=== PATIENT | female | born 1965 | race Two or more races ===

== ENCOUNTER → 2024-06-27 06:19 | Outpatient (REF) | payer MEDICARE, MEDICAID, SELFPAY | LOC: MRI 3T 06:19 | PROVIDERS: ATTENDING PHYSICIAN Physical Medicine & Rehabilitation Sports Medicine; FAMILY PHYSICIAN Family Medicine | DX: M25.562 Pain in left knee (principal); M54.32 Sciatica, left side | CPT/HCPCS: 73721 ==

== ENCOUNTER → 2024-07-23 12:16 | Outpatient (REF) | payer MEDICARE, MEDICAID, SELFPAY ==
[2024-07-23 12:50] VITALS: BP 126/86; BP_SYST 88
[2024-07-23 14:15] VITALS: BP 118/88; BP_SYST 78
== END ==
LOC: RADI 12:16
PROVIDERS: ATTENDING PHYSICIAN Physical Medicine & Rehabilitation Sports Medicine
DX: M71.22 Synovial cyst of popliteal space [Baker], left knee (principal)
CPT/HCPCS: 20612

== ENCOUNTER 2024-09-09 06:16 | Day surgery (SDC) | payer MEDICARE, SELFPAY ==
[2024-09-09] VITALS (15 sets, daily range): BP systolic 92–137; BP diastolic 64–94; BMI 28.7
[2024-09-09] MEDS: TYLENOL 1000 MG PO ×2 (09:24→15:38)
[2024-09-09] MEDS: SKELAXIN 800 MG PO (09:24)
[2024-09-09] MEDS: CELEBREX 200 MG PO (09:24)
[2024-09-09] MEDS: LYRICA 150 MG PO (09:25)
[2024-09-09] MEDS: NORMOSOL-R/PLASMALYTE-A 1000 IV (09:25)
[2024-09-09] MEDS: DILAUDID 0.25 MG IV (13:17)
[2024-09-09] MEDS: DILAUDID 4 MG PO (14:53)
== END 2024-09-09 16:10 | disposition home or self-care (01) ==
LOC: SDS 06:16
PROVIDERS: ATTENDING PHYSICIAN Orthopaedic Surgery Orthopaedic Surgery of the Spine; FAMILY PHYSICIAN Family Medicine
DX: M48.062 Spinal stenosis, lumbar region with neurogenic claudication (principal); M48.07 Spinal stenosis, lumbosacral region
CPT/HCPCS: 63047; 72020

== ENCOUNTER → 2025-02-03 14:35 | Outpatient (REF) | payer MEDICARE, OTHER, SELFPAY | LOC: HWRAD 14:35 | PROVIDERS: ATTENDING PHYSICIAN Family Medicine; REFERRING PHYSICIAN Internal Medicine Nephrology | DX: R22.31 Localized swelling, mass and lump, right upper limb (principal) | CPT/HCPCS: 76882 ==

== ENCOUNTER → 2025-02-09 10:31 | Outpatient (REF) | payer MEDICARE, OTHER, SELFPAY | LOC: HWRAD 10:31 | PROVIDERS: ATTENDING PHYSICIAN Family Medicine | DX: N94.89 Other specified conditions associated with female genital organs and menstrual cycle (principal) | CPT/HCPCS: 76830; 76856 ==

== ENCOUNTER → 2025-05-05 10:50 | Outpatient (REF) | payer MEDICARE, OTHER, SELFPAY | LOC: PAVMRI 10:50 | PROVIDERS: ATTENDING PHYSICIAN Family Medicine | DX: R51.9 Headache, unspecified (principal) | CPT/HCPCS: 70551 ==

== ENCOUNTER → 2025-06-21 12:41 | Outpatient (REF) | payer MEDICARE, OTHER, SELFPAY | LOC: RADI 12:41 | PROVIDERS: ATTENDING PHYSICIAN Family Medicine; FAMILY PHYSICIAN Family Medicine | DX: M79.605 Pain in left leg (principal); Z53.8 Procedure and treatment not carried out for other reasons | CPT/HCPCS: 76882 ==